=== PATIENT | female | born 1935 | race Caucasian/White ===

== ENCOUNTER → 2016-10-22 | Outpatient (CLI) | payer OTHER, MEDICARE | LOC: BHFA 10:45 | PROVIDERS: ATTEND Internal Medicine Cardiovascular Disease | DX: R94.31 Abnormal electrocardiogram [ECG] [EKG] (principal) ==

== ENCOUNTER 2016-12-17 07:31 | Day surgery (SDC) | payer OTHER, MEDICARE ==
[2016-12-17] MEDS ORDERED: NS 1,000 ML IV ONE (07:39)
[2016-12-17] MEDS ORDERED: diphenhydrAMINE 25 MG CAP PO ONE ×2 (07:39→07:54)
[2016-12-17] MEDS ORDERED: DIAZEPAM 5 MG TAB PO ONE (07:39)
[2016-12-17] MEDS ORDERED: ASPIRIN EC 325 MG TAB PO ONE ×2 (07:39→07:54)
[2016-12-17] MEDS ORDERED: DIAZEPAM 5 MG TAB ONE (07:54)
--- NOTE | 2016-12-17 08:01 | CPEKG ---
Heart Rate: 96 RR Interval: 625 P-R Interval: 236 QRSD Interval: 86 QT Interval: 420 QTC Interval: 531 P Fishers: 84 QRS Fishers: 26 T Wave Fishers: 222 EKG Severity - ABNORMAL ECG - EKG Impression: SINUS RHYTHM EKG Impression: FIRST DEGREE AV BLOCK EKG Impression: RIGHT ATRIAL ABNORMALITY EKG Impression: ABNORMAL T, PROBABLE ISCHEMIA, ANT-LAT LEADS EKG Impression: PROLONGED QT INTERVAL Electronically Signed By: Jerrod Rowe 17-Dec-2016 16:10:26
[2016-12-17 08:18] LABS: % IMMATURE GRANULYOCYTES 0.2 % (0.0-1.1); ABSOLUTE IMMATURE GRANULOCYTES 0.01 10^3/uL (0.00-0.10); ADD DIFF? NO; ADD MORPH? NO; ADD SCAN? NO; ATYPICAL LYMPHOCYTE FLAG 0 (0-99); FRAGMENT RBC FLAG 0 (0-99); HEMATOCRIT 42.8 % (38.0-47.0); HEMOGLOBIN 13.9 g/dL (12.6-16.3); LEFT SHIFT FLG 0 (0-99); LIPEMIA HEMOLYSIS FLAG 80 (0-99); MEAN CELL HEMOGLOBIN 30.2 pg (27.9-34.1); MEAN CELL HEMOGLOBIN CONCENTR. 32.5 g/dL (32.4-36.7); MEAN CELL VOLUME 92.8 fL (81.5-99.8); MEAN PLATELET VOLUME 8.7 fL (8.7-11.7); PLATELET CLUMPS FLAG 0 (0-99); PLATELET COUNT 284 10^3/uL (150-400); RED BLOOD CELL COUNT 4.61 10^6/uL (4.18-5.33); RED CELL DISTRIBUTION WIDTH 13.8 % (11.5-15.2)
[2016-12-17 08:32] LABS: INR 0.99 (0.83-1.16)
[2016-12-17 08:35] LABS: ANION GAP 10 mEq/L (8-16); CALCIUM 9.8 mg/dL (8.5-10.4); CARBON DIOXIDE 30 mEq/l (22-31); CHLORIDE 101 mEq/L (97-110); CHOLESTEROL 224 mg/dL (140-220); GLOMERULAR FILTRATION RATE 53; GLUCOSE 106 mg/dL (70-100); HIGH DENSITY LIPOPROTEIN 64 mg/dL (40-85); LDL/HDL RATIO 2.19 RATIO (1.00-3.22); LOW DENSITY LIPOPROTEIN 140 mg/dL (80-100); MAGNESIUM 2.2 mg/dL (1.6-2.3); NON-HIGH DENSITY LIPOPROTEIN 160 mg/dL (90-129); POTASSIUM 4.5 mEq/L (3.5-5.2); SODIUM 141 mEq/L (134-144); TRIGLYCERIDE 102 mg/dL (35-135); VERY LOW DENSITY LIPOPROTEINS 20 mg/dL (8-25)
[2016-12-17] MEDS ORDERED: LIDOCAINE 1% 30 ML SDV ONE (10:25)
[2016-12-17] MEDS ORDERED: fentaNYL 100 MCG/2 ML INJ ONE (10:25)
[2016-12-17] MEDS ORDERED: MIDAZOLAM 2 MG/2 ML VIAL ONE ×2 (10:25)
[2016-12-17] MEDS ORDERED: IOPAMIDOL (ISOVUE 370) 100 ML BTL IV ONE (10:26)
[2016-12-17] MEDS ORDERED: methylPREDNISolone SOD SUCC 125 MG/2 ML VIAL ONE (10:43)
--- NOTE | 2016-12-17 12:18 | CPIP ---
[f rep st] INVASIVE CARDIAC PROCEDURE DATE OF PROCEDURE: 12/17/2016 PROCEDURE: 1. Coronary angiography. 2. Left ventriculography. INDICATION: 1. Abnormal EKG. 2. Abnormal echocardiogram with segmental wall motion abnormality. ACCESS: Patient was prepped and draped in a sterile fashion. 1% lidocaine was used to anesthetize the right inguinal region. A 6-Faroese introducer sheath was placed selectively into the right commo n femoral artery via modified Seldinger technique. CORONARY ANGIOGRAPHY: A 6-Faroese JL4 was advanced to the left main coronary artery and images obtai kacey. The left main coronary artery bifurcated into an LAD and circumflex coronary arteries. The le ft main coronary artery appeared normal. The left anterior descending coronary artery gave rise to 2 diagonal branches. The left anterior descending coronary artery had mild luminal irregularities i n the proximal segment with no stenosis greater than 10%. There were also mild luminal irregulariti es in the mid segment with no stenosis greater than 10%. The diagonal arteries were free of any sig nificant disease. The circumflex coronary artery was a large vessel, but was nondominant. Circumfl ex coronary artery gave rise to 4 OM branches. The circumflex coronary artery in its complement of OM branches appeared normal. A 6-Faroese JR4 was advanced to the right coronary artery and images ob tained. The right coronary artery was dominant. The right coronary artery had a single discrete 20 % stenosis in the midvessel. LEFT VENTRICULOGRAPHY: A 6-Faroese pigtail catheter was advanced into the left ventricle and images obtained. The left ventricle was normal in size and had normal systolic function. The estimated ej ection fraction was 60%. 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 COMPLICATIONS: None. CONCLUSIONS: 1. Mild coronary artery disease without flow limitation. 2. 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 3. Plan is for medical management. /[id number]/MODL
== END 2016-12-17 15:57 | disposition home or self-care (01) ==
LOC: FCATH 07:31
PROVIDERS: ATTEND Internal Medicine Cardiovascular Disease
DX: R94.31 Abnormal electrocardiogram [ECG] [EKG] (principal); I25.10 Atherosclerotic heart disease of native coronary artery without angina pectoris; I25.3 Aneurysm of heart; I10 Essential (primary) hypertension; E03.9 Hypothyroidism, unspecified; E55.9 Vitamin D deficiency, unspecified; Z90.11 Acquired absence of right breast and nipple; Z85.3 Personal history of malignant neoplasm of breast
CPT/HCPCS: C1760; J1644; J2250; J3010; Q9967

== ENCOUNTER → 2017-03-18 | Outpatient (CLI) | payer OTHER, MEDICARE | LOC: BMCIMAGING 12:41 | PROVIDERS: ATTEND Internal Medicine Hematology & Oncology | DX: Z12.31 Encounter for screening mammogram for malignant neoplasm of breast (principal); Z85.3 Personal history of malignant neoplasm of breast; Z90.11 Acquired absence of right breast and nipple | CPT/HCPCS: G0202; G0202-52 ==